=== PATIENT | male | born 1975 | race Caucasian/White ===

== ENCOUNTER 2022-02-15 11:42 | Emergency (ER) | payer OTHER ==
[~2022-02-15] VITALS: Ht 175.3 cm; Wt 117.5 kg
[2022-02-15 12:09] VITALS: BP 135/81
--- NOTE | 2022-02-15 12:22 | NUR ---
46 Y/O MALE BIB SELF C/O REDNESS AND SWELLING TO RIGHT LOWER LEG X2DAYS, PER PT HE BELIEVES HE WAS BITTEN BY SOMETHING NKA PMH: DENIES
[2022-02-15] MEDS ORDERED: CEPH-588 PO (12:43)
[2022-02-15] MEDS ORDERED: IBUP-2213 PO (12:43)
--- NOTE | 2022-02-15 12:57 | NUR ---
Patient discharged with v/s stable. Written and verbal after care instructions ABOUT CELLULITIES given and explained. Patient alert, oriented and verbalized understanding of instructions. Ambulatory with steady gait. All questions addressed prior to discharge. ID band removed. Patient advised to follow up with PMD. Rx of KEFLEX AND IBUPROFEN given. Patient educated on indication of medication including possible reaction and side effects. Opportunity to ask questions provided and answered.
== END 2022-02-15 12:57 | disposition home or self-care (01) ==
LOC: MED 11:42
DX: L03.115 Cellulitis of right lower limb (principal); Z79.899 Other long term (current) drug therapy
CPT/HCPCS: 99283

== ENCOUNTER 2022-03-25 06:55 | Emergency (ER) | payer OTHER ==
[~2022-03-25] VITALS: Ht 165.1 cm; Wt 119.0 kg
[~2022-03-25 06:55] MED LIST: CEPH-588 PO; IBUP-2213 PO
[2022-03-25 06:58] VITALS: BP 139/89
--- NOTE | 2022-03-25 07:02 | NUR ---
to lobby a/w bed ambulatory
--- NOTE | 2022-03-25 07:45 | NUR ---
46/M WALKED IN C/O RIGHT EYE PAIN AND SWELLING ONSET 2 DAYS. DENIES DISCHARGE. DENIES BLURRY VISION. AAO4, AMBULATORY, VITALS STABLE. ON ROOM AIR.
[2022-03-25] MEDS ORDERED: POLY10SO OP (07:46)
[2022-03-25] MEDS ORDERED: CEPH-588 PO (07:46)
== END 2022-03-25 08:00 | disposition home or self-care (01) ==
LOC: MED 06:55
DX: H00.011 Hordeolum externum right upper eyelid (principal); L03.213 Periorbital cellulitis; H10.9 Unspecified conjunctivitis; Z79.899 Other long term (current) drug therapy
CPT/HCPCS: 99281

== ENCOUNTER 2022-04-22 16:05 | Emergency (ER) | payer OTHER ==
[~2022-04-22] VITALS: Ht 175.3 cm; Wt 117.9 kg
[~2022-04-22 16:05] MED LIST changes: +POLY10SO OP
[2022-04-22 16:19] VITALS: BP 147/107
[2022-04-22] MEDS ORDERED: KETOROLAC 30 MG/ML VIAL IM ONE (17:10)
--- NOTE | 2022-04-22 18:29 | NUR ---
46/M WALKED IN C/O RIGHT KNEE PAIN AND SWELLING S/P EXERCISE YESTERDAY. DENIES FALL OR TRAUMA. NKA PMH: DENIES
[2022-04-22] MEDS ORDERED: NAPR-1704 PO (18:59)
[2022-04-22 19:05] VITALS: BP 138/82
== END 2022-04-22 19:05 | disposition home or self-care (01) ==
LOC: MED 16:05
DX: S83.91XA Sprain of unspecified site of right knee, initial encounter (principal); Z79.1 Long term (current) use of non-steroidal anti-inflammatories (NSAID); Z79.2 Long term (current) use of antibiotics; X58.XXXA Exposure to other specified factors, initial encounter; Y92.89 Other specified places as the place of occurrence of the external cause; Y93.89 Activity, other specified; Y99.8 Other external cause status
CPT/HCPCS: 73562; 96372; 99283; J1885

== ENCOUNTER 2022-05-27 15:30 | Emergency (ER) | payer OTHER ==
[~2022-05-27] VITALS: Ht 175.3 cm; Wt 117.0 kg
[~2022-05-27 15:30] MED LIST changes: +NAPR-1704 PO
[2022-05-27 15:54] VITALS: BP 141/92
[2022-05-27] MEDS ORDERED: CEPH-588 PO (19:57)
--- NOTE | 2022-05-27 21:14 | NUR ---
Patient discharged with v/s stable. Written and verbal after care instructions given and explained. Patient alert, oriented and verbalized understanding of instructions. All questions addressed prior to discharge. ID band removed. Patient advised to follow up with PMD. Rx of Keflex sent to preferred pharmacy. Patient educated on indication of medication including possible reaction and side effects. Opportunity to ask questions provided and answered.
[2022-05-27 21:15] VITALS: BP 134/87
== END 2022-05-27 21:14 | disposition home or self-care (01) ==
LOC: MED 15:30
DX: L03.115 Cellulitis of right lower limb (principal); Z79.2 Long term (current) use of antibiotics; Z79.1 Long term (current) use of non-steroidal anti-inflammatories (NSAID)
CPT/HCPCS: 73590; 99283

== ENCOUNTER 2022-08-13 18:22 | Emergency (ER) | payer OTHER ==
[~2022-08-13] VITALS: Ht 175.3 cm; Wt 118.4 kg
[2022-08-13 18:41] VITALS: BP 135/86; PULSE 69; RESP 20; TEMP 100.3; O2SAT 99
--- NOTE | 2022-08-13 18:55 | NUR ---
PT TO BED #9 Addendum: 08/13/22 at 1855 by MEDGJ Patient being evaluated by physician at bedside.
--- NOTE | 2022-08-13 18:55 | NUR ---
ASSESSING PT AT BEDSIDE
[2022-08-13] MEDS ORDERED: CEPH-588 PO (19:10)
[2022-08-13 19:14] VITALS: BP 130/87; PULSE 90; RESP 20; TEMP 98; O2SAT 99
[2022-08-13] MEDS ORDERED: ACET-10509 PO (19:18)
[2022-08-13] MEDS ORDERED: IBUP-2213 PO (19:18)
== END 2022-08-13 19:14 | disposition home or self-care (01) ==
LOC: MED 18:22
DX: L03.115 Cellulitis of right lower limb (principal); Z79.899 Other long term (current) drug therapy
CPT/HCPCS: 99283

== ENCOUNTER 2023-09-17 15:54 | Emergency (ER) | payer OTHER ==
[~2023-09-17] VITALS: Ht 175.3 cm; Wt 124.9 kg
[~2023-09-17 15:54] MED LIST changes: +ACET-10509 PO
[2023-09-17 16:24] VITALS: BP 124/64; PULSE 73; RESP 17; TEMP 97.8; O2SAT 97
[2023-09-17] MEDS ORDERED: SULF-59 PO (16:34)
== END 2023-09-17 16:39 | disposition home or self-care (01) ==
LOC: MED 15:54
DX: L03.115 Cellulitis of right lower limb (principal); I10 Essential (primary) hypertension; M06.9 Rheumatoid arthritis, unspecified; Z79.899 Other long term (current) drug therapy; Z79.1 Long term (current) use of non-steroidal anti-inflammatories (NSAID); Z79.2 Long term (current) use of antibiotics
CPT/HCPCS: 82948; 99283

== ENCOUNTER 2023-11-13 21:54 | Emergency (ER) | payer OTHER ==
[~2023-11-13] VITALS: Ht 175.3 cm; Wt 123.8 kg
[~2023-11-13 21:54] MED LIST changes: -ACET-10509 PO; +ACET500T99 PO; +SULF-59 PO
[2023-11-13 22:01] VITALS: BP 128/80; PULSE 93; RESP 18; TEMP 98.4; O2SAT 98
[2023-11-13 22:27] VITALS: BP 128/80; PULSE 93; RESP 18; TEMP 98.4; O2SAT 98
[2023-11-13] MEDS ORDERED: SULF-59 PO (22:35)
== END 2023-11-13 22:44 | disposition home or self-care (01) ==
LOC: MED 21:54
DX: L03.115 Cellulitis of right lower limb (principal); I10 Essential (primary) hypertension; Z98.890 Other specified postprocedural states; Z79.899 Other long term (current) drug therapy
CPT/HCPCS: 99283